=== PATIENT | female | born 1965 | race Caucasian/White ===

== ENCOUNTER 2021-01-14 13:36 | Outpatient (CLI) | payer OTHER ==
--- NOTE | 2021-01-14 15:58 | XRAY Report ---
PROCEDURE: Hip w/Pelvis 2-3V RT INDICATIONS: RIGHT HIP PAIN TECHNIQUE: AP pelvis with lateral view of the right hip. COMPARISON: None. FINDINGS: Bones: No fractures or dislocations. Pelvic ring appears intact. There are patchy indistinct sclero tic and lucent lesions throughout the visualized osseous structures. Soft tissues: The visualized bowel gas pattern is normal. No suspicious soft tissue calcifications. IMPRESSION: 1. Patchy indistinct sclerotic and lucent lesions throughout the visualized osseous structures. The f indings are nonspecific but highly suspicious for metastatic disease. Recommend correlation clinicall y for possible history of malignancy. Further evaluation may be obtained with a bone scan if indicate d. 2. No fracture or dislocation. Findings discussed with Lawrence Gong on 01/14/2021 at 3:55 PM [place] time. Reviewed by: Clint Rob MD on 01/14/2021 2:56 PM [place] Approved by: Clint Rob MD on 01/14/2021 2:56 PM [place] Station ID: [id number]
--- NOTE | 2021-01-14 16:26 | XRAY Report ---
PROCEDURE: Lumbar Spine 2 View INDICATIONS: RIGHT HIP PAIN TECHNIQUE: 2 views of the lumbar spine were acquired. COMPARISON: None. FINDINGS: Bones: 5 [id number] vertebrae are present. There is overall appearance of lumbar straightening . Moderate disc space narrowing is present at L5-S1 as well as foraminal narrowing. Mild disc space n arrowing is present L4-5. No vertebral body compression fractures. No suspicious bony lesions. Soft tissues: Overlying bowel gas pattern is normal. No suspicious soft tissue calcifications. IMPRESSION: Degenerative changes most notable at L5-S1. Reviewed by: Allyson Gandara MD on 01/14/2021 4:24 PM PST Approved by: Allyson Gandara MD on 01/14/2021 4:24 PM PST Station ID: [id number]
== END 2021-01-14 23:59 | disposition home or self-care (01) ==
LOC: DI.N 13:36
PROVIDERS: ATTEND Physician Assistant Medical
DX: R93.6 Abnormal findings on diagnostic imaging of limbs (principal); M47.816 Spondylosis without myelopathy or radiculopathy, lumbar region; M47.817 Spondylosis without myelopathy or radiculopathy, lumbosacral region; M51.36 Other intervertebral disc degeneration, lumbar region; M48.061 Spinal stenosis, lumbar region without neurogenic claudication; M51.37 Other intervertebral disc degeneration, lumbosacral region; M48.07 Spinal stenosis, lumbosacral region

== ENCOUNTER 2021-01-21 14:11 | Emergency (ER) | payer OTHER ==
--- NOTE | 2021-01-21 14:56 | ED Physician Documentation ---
History of Present Illness - Stated complaint Stated Complaint: AMS - Chief complaint Chief Complaint: Neuro - History obtained from History obtained from: Patient, Family - History of Present Illness Timing: Today Pain level max: 8 Pain level now: 6 - Additonal information Additional information: Patient is a 55-year-old female with a history of breast cancer that she was treated for several years ago including a mastectomy. She had been "released from the clinic" about 7 years ago. 1 week ago she was at [facility], had CT scans of the chest abdomen and pelvis which showed diffuse metastatic disease. The patient is awaiting an oncology follow-up visit. She has seen her primary care provider at [facility] as well. The patient today states that she had acute confusion. This was noticed by the daughter. Unclear how long this lasted or when it started but has since resolved. Patient is back to her normal baseline. She has not had any imaging performed of her brain. Unknown if she has metastases anywhere other than the ribs and spine. No focal neurological deficits. Nothing made it better or worse Patient states that she was started on oxycodone for pain, takes this every 8 hours, she states 5 mg pills. She states her only other medication she is taking is anastrozole Review of Systems Ten Systems: 10 systems reviewed and negative Constitutional: denies: Fever, Chills Ears: denies: Ear pain Nose: denies: Rhinorrhea / runny nose, Congestion Throat: denies: Sore throat Cardiac: denies: Chest pain / pressure Respiratory: denies: Dyspnea, Cough, Wheezing GI: denies: Vomiting, Diarrhea Skin: denies: Rash Musculoskeletal: denies: Neck pain, Back pain Neurologic: denies: Headache PD PAST MEDICAL HISTORY - Allergies Allergies/Adverse Reactions: Allergies Allergy/AdvReac Type Severity Reaction Status Date / Time No Known Drug Allergies Allergy Verified 01/21/21 14:33 PD ED PE NORMAL - Vitals Vital signs reviewed: Yes - General General: Alert and oriented X 3, No acute distress, Well developed/nourished - HEENT HEENT: Atraumatic, PERRL, EOMI, Ears normal, Moist mucous membranes, Pharynx benign - Neck Neck: Supple, no meningeal sign, Other (Full range of motion without any pain pain) - Cardiac Cardiac: No murmur, Other (Tachycardic but regular) - Respiratory Respiratory: No respiratory distress, Clear bilaterally - Abdomen Abdomen: Soft, Non tender, Non distended - Back Back: No CVA TTP, No spinal TTP - Derm Derm: Warm and dry - Extremities Extremities: No edema, No calf tenderness / cord - Neuro Neuro: Alert and oriented X 3, rackman 2-12 intact, No motor deficit, No sensory deficit, Normal speech Eye Opening: Spontaneous Motor: Obeys Commands Verbal: Oriented GCS Score: 15 - Psych Psych: Normal mood, Normal affect - Free text exam Free text exam: NIH stroke scale of 0 Results - Vitals Vitals: Vital Signs - 24 hr 01/21/21 01/21/21 01/21/21 14:26 15:02 17:00 Temperature 38.0 C H Heart Rate 140 H 136 H 128 H Respiratory 14 21 20 Rate Blood Pressure 107/72 126/78 124/82 H O2 Saturation 97 99 98 01/21/21 19:02 Temperature Heart Rate 127 H Respiratory 20 Rate Blood Pressure 129/81 H O2 Saturation 98 Oxygen O2 Source Room air - Labs Labs: Laboratory Tests 01/21/21 01/21/21 01/21/21 14:55 14:55 14:55 WBC 12.0 H RBC 3.37 L Hgb 9.8 L Hct 31.2 L MCV 92.6 MCH 29.1 MCHC 31.4 L RDW 19.9 H Plt Count 19 L* Neut # (Auto) Not Reportable Lymph # (Auto) Not Reportable Edmonson # (Auto) Not Reportable Eos # (Auto) Not Reportable Baso # (Auto) Not Reportable Absolute Nucleated RBC Not Reportable Total Counted 100 Band Neuts % (Manual) 3 Abnorm Lymph % (Manual) 0 Metamyelocytes % 5 H Myelocytes % 1 H Nucleated RBC % Not Reportable Neutrophils # (Manual) 6.2 Lymphocytes # (Manual) 4.3 H Monocytes # (Manual) 0.5 Eosinophils # (Manual) 0.1 Basophils # (Manual) 0.1 Nucleated RBCs 27 Differential Comment MANUAL DIFFERENTIAL WBC Morphology NORMAL APPEARANCE Platelet Estimate DECREASED (<130,000) Platelet Morphology NORMAL APPEARANCE RBC Morph Micro Appear 2+ POLYCHROMASIA PT 16.6 H INR 1.5 H APTT 22.3 L Sodium 128 L Potassium 3.8 Chloride 95 L Carbon Dioxide 21 Anion Gap 12.0 BUN 10 Creatinine 0.5 Estimated GFR (MDRD) 128 Glucose 109 H Calcium 8.7 Total Bilirubin 1.0 AST 260 H ALT 37 Alkaline Phosphatase 729 H Total Protein 7.2 Albumin 3.2 Globulin 4.0 Albumin/Globulin Ratio 0.8 L Lipase 23 - Rads (name of study) CT head Radiology: Final report received, EMP read contemporaneously, See rad report MRI brain Radiology: Final report received, EMP read contemporaneously, See rad report PD MEDICAL DECISION MAKING - ED course Complexity details: reviewed results, re-evaluated patient, considered differential, d/w patient, d/w family, d/w health care consultant ED course: Patient is a 55-year-old female with metastatic breast cancer. Has diffuse metastases throughout most of her bones including her skull. Unclear etiology of the transient altered mental status today. This did not last longer than about 20 minutes. She is not a candidate to be anticoagulated given her thrombocytopenia. Her MRI shows mild diffuse dural enhancement. Patient does not have any meningeal signs on physical exam. She has full range of motion of the neck without any discomfort. We did discuss a lumbar puncture, but given her significant thrombocytopenia, she would be at high risk for hematoma from this procedure that could cause compression of her spinal cord. Therefore this will be held at this time. Patient is very well-appearing, nontoxic. Afebrile on repeat temperature testing. 37.3. Discussed the case with Dr. Troncoso, her oncologist who will follow her up on Monday in the office. Patient does not have any signs of active bleeding currently. Patient and family counseled regarding signs and symptoms for which I believe and urgent re-evaluation would be necessary. Patient with good understanding of and agreement to plan and is comfortable going home at this time This document was made in part using voice recognition software. While efforts are made to proofread this document, sound alike and grammatical errors may occur. MRI Results: FINDINGS: Image quality: Excellent. CSF spaces: Basal cisterns are patent. No extra-axial fluid collections. Ventricles are normal in size and shape. Brain: No midline shift. No intracranial bleeds or masses. There is mild to moderate diffuse dural enhancement which is mildly nodular. There is cerebral volume loss for age. There is periventricular white matter chronic small vessel ischemic change. The brainstem appears normal. Diffusion-weighted images demonstrate no acute ischemic insults. No chronic ischemic insults. Normal intravascular flow voids are present. Skull and face: Calvarial marrow is normal in signal. Orbits appear normal. Sinuses: Sinuses and mastoids appear clear. IMPRESSION: 1. Mild diffuse dural enhancement. Finding could indicate leptomeningeal tumor. Other considerations include chronic intracranial hypotension, as well as meningitis, and granulomatous disease. Correlation with CSF analysis recommended. 2. No acute process. No recent infarct. CT Results: FINDINGS: Image quality: Excellent. CSF spaces: Basal cisterns are patent. No extra-axial fluid collections. Ventricles are normal in size and shape. Brain: No midline shift. No intracranial masses or hemorrhage. Dyer-white matter interface is normal. Skull and face: Multiple well-defined lucent lesions are seen within the calvarium. Sinuses: Mucosal thickening is seen in the frontal sinuses and anterior ethmoid air cells bilaterally. The remaining visualized paranasal sinuses and the mastoid air cells are clear. IMPRESSION: 1.No acute cardiopulmonary abnormality. 2.Multiple small lucent lesions are seen throughout the calvarium that are of uncertain etiology and could represent benign or malignant lesions including metastatic disease. Recommend correlation with clinical findings and history. Departure - Departure Disposition: 01 Home, Self Care Clinical Impression: Metastatic breast cancer, Thrombocytopenia Altered mental status Qualifiers: Altered mental status type: unspecified Qualified Code(s): R41.82 - Altered mental status, unspecified Condition: Good Instructions: ED Altered Loc Follow-Up: JUSTYNA PEACOCK ARNP [Primary Care Provider] - GHANSHYAM TRONCOSO MD [Physician No Access] - 01/25/21 Comments: As we discussed, you do have a complex medical situation. The cause of your altered mental status earlier today is unclear. Your hemoglobin is slightly higher than when you were at [facility]. Your platelets have continued to drop and are down to 19. Your white blood cell count is mildly elevated today at 12.0. You do not seem to have any infectious symptoms other than a mildly elevated temperature upon arrival. Your CT scan and MRI show disease consistent with metastases to your skull. You could have an early infection in your brain such as encephalitis or meningitis, though given that your symptoms have resolved and you're not having headache or neck pain, this is less likely. We did discuss a lumbar puncture, but given your low platelets, you would be at risk for a spinal cord compression from hematoma. I would recommend that if fevers recurr or you worsen, you to go immediately to [facility] where you can be evaluated by Dr. Troncoso and his team. I did speak with Dr. Derrick cevallos and he wants to see you in the clinic on Monday. You need to be seen also if you fall, have any head injury or noticed any bleeding. MRI Results: FINDINGS: Image quality: Excellent. CSF spaces: Basal cisterns are patent. No extra-axial fluid collections. Ventricles are normal in size and shape. Brain: No midline shift. No intracranial bleeds or masses. There is mild to moderate diffuse dural enhancement which is mildly nodular. There is cerebral volume loss for age. There is periventricular white matter chronic small vessel ischemic change. The brainstem appears normal. Diffusion-weighted images demonstrate no acute ischemic insults. No chronic ischemic insults. Normal intravascular flow voids are present. Skull and face: Calvarial marrow is normal in signal. Orbits appear normal. Sinuses: Sinuses and mastoids appear clear. IMPRESSION: 1. Mild diffuse dural enhancement. Finding could indicate leptomeningeal tumor. Other considerations include chronic intracranial hypotension, as well as meningitis, and granulomatous disease. Correlation with CSF analysis recommended. 2. No acute process. No recent infarct. CT Results: FINDINGS: Image quality: Excellent. CSF spaces: Basal cisterns are patent. No extra-axial fluid collections. Ventricles are normal in size and shape. Brain: No midline shift. No intracranial masses or hemorrhage. Dyer-white matter interface is normal. Skull and face: Multiple well-defined lucent lesions are seen within the calvarium. Sinuses: Mucosal thickening is seen in the frontal sinuses and anterior ethmoid air cells bilaterally. The remaining visualized paranasal sinuses and the mastoid air cells are clear. IMPRESSION: 1.No acute cardiopulmonary abnormality. 2.Multiple small lucent lesions are seen throughout the calvarium that are of uncertain etiology and could represent benign or malignant lesions including metastatic disease. Recommend correlation with clinical findings and history. Discharge Date/Time: 01/21/21 19:03
[2021-01-21 15:05] LABS: BASOPHILS % (AUTO) 1.6 %; EOSINOPHILS % (AUTO) 7.4 %; HCT - HEMATOCRIT 31.2 % (37.0-47.0); HGB - HEMOGLOBIN 9.8 g/dL (12.0-16.0); LYMPHOCYTES % (AUTO) 35.8 %; MEAN CORPUSCULAR HEMOGLOBIN 29.1 pg (27.0-31.0); MEAN CORPUSCULAR HGB CONC 31.4 g/dL (32.0-36.0); MEAN CORPUSCULAR VOLUME 92.6 fL (81.0-99.0); MONOCYTES % (AUTO) 12.1 %; NEUTROPHILS % (AUTO) 34.7 %; RED BLOOD COUNT 3.37 10^6/uL (4.20-5.40); RED CELL DISTRIBUTION WIDTH 19.9 % (12.0-15.0)
[2021-01-21] MEDS ORDERED: GADOBUTROL 10 MMOL/10 ML VIAL ONE (15:07)
[2021-01-21 15:15] LABS: ALBUMIN 3.2 g/dL (3.2-5.5); ALBUMIN/GLOBULIN RATIO 0.8 (1.0-2.2); CALCIUM 8.7 mg/dL (8.5-10.3); CREATININE 0.5 mg/dL (0.4-1.0); POTASSIUM 3.8 mmol/L (3.5-5.0); TOTAL PROTEIN 7.2 g/dL (6.7-8.2)
[2021-01-21 15:18] LABS: PLT - PLATELET COUNT 19 10^3/uL (130-450)
[2021-01-21 15:19] LABS: ABNORMAL LYMPHS % (MANUAL) 0 %
[2021-01-21 15:33] LABS: INR 1.5 (0.8-1.2); PT - PROTHROMBIN TIME 16.6 secs (9.9-12.6)
[2021-01-21 15:45] LABS: PARTIAL THROMBOPLASTIN TIME 22.3 secs (24.9-33.3)
[2021-01-21 15:53] LABS: BAND NEUTROPHILS % (MANUAL) 3 %; BASOPHILS # (MANUAL) 0.1 10^3/uL (0-0.1); BASOPHILS % (MANUAL) 1 %; EOSINOPHILS # (MANUAL) 0.1 10^3/uL (0-0.7); LYMPHOCYTES # (MANUAL) 4.3 10^3/uL (1.5-3.5); LYMPHOCYTES % (MANUAL) 36 %; METAMYELOCYTES % (MANUAL) 5 %; MONOCYTES # (MANUAL) 0.5 10^3/uL (0.0-1.0); MYELOCYTES % (MANUAL) 1 %; NEUTROPHILS # (MANUAL) 6.2 10^3/uL (1.5-6.6); NUCLEATED RBC (MANUAL) 27 %
[2021-01-21 15:54] LABS: DIFFERENTIAL COMMENT MANUAL DIFFERENTIAL; PLATELET ESTIMATE, MANUAL DECREASED (<130,000) (NORMAL); PLATELET MORPHOLOGY NORMAL APPEARANCE (NORMAL); WBC MORPHOLOGY (MULTIPLE) NORMAL APPEARANCE (NORMAL)
[2021-01-21] MEDS: GADOBUTROL 10 MMOL/10 ML VIAL IVP ONE (16:23)
--- NOTE | 2021-01-21 16:45 | CT Report ---
PROCEDURE: HEAD WO INDICATIONS: transient altered mental status TECHNIQUE: Noncontrast 4.5 mm thick angled axial sections acquired from the foramen magnum to the vertex. For r adiation dose reduction, the following was used: automated exposure control, adjustment of mA and/or kV according to patient size. COMPARISON: None. FINDINGS: Image quality: Excellent. CSF spaces: Basal cisterns are patent. No extra-axial fluid collections. Ventricles are normal in size and shape. Brain: No midline shift. No intracranial masses or hemorrhage. Dyer-white matter interface is norm al. Skull and face: Multiple well-defined lucent lesions are seen within the calvarium. Sinuses: Mucosal thickening is seen in the frontal sinuses and anterior ethmoid air cells bilaterally . The remaining visualized paranasal sinuses and the mastoid air cells are clear. IMPRESSION: 1.No acute cardiopulmonary abnormality. 2.Multiple small lucent lesions are seen throughout the calvarium that are of uncertain etiology and could represent benign or malignant lesions including metastatic disease. Recommend correlation with clinical findings and history. Reviewed by: Judah Michelle MD on 01/21/2021 4:43 PM PST Approved by: Judah Michelle MD on 01/21/2021 4:43 PM PST Station ID: [id number]
--- NOTE | 2021-01-21 16:47 | MRI Report ---
PROCEDURE: Brain W/WO INDICATIONS: altered mental status, metastatic breast CA CONTRAST: IV CONTRAST: Gadavist ml: 8.3 TECHNIQUE: Noncontrast axial T1 spin echo, axial T2 fast spin echo, sagittal and axial FLAIR, coronal T2 fast sp in echo, axial gradient echo, axial diffusion and ADC through the brain. After the administration of contrast, axial and coronal T1 spin echo with fat saturation through the brain. COMPARISON: Head CT dated 01/21/2021 FINDINGS: Image quality: Excellent. CSF spaces: Basal cisterns are patent. No extra-axial fluid collections. Ventricles are normal in size and shape. Brain: No midline shift. No intracranial bleeds or masses. There is mild to moderate diffuse dural enhancement which is mildly nodular. There is cerebral volume loss for age. There is periventricular white matter chronic small vessel ischemic change. The brainstem appears normal. Diffusion-weighte d images demonstrate no acute ischemic insults. No chronic ischemic insults. Normal intravascular f low voids are present. Skull and face: Calvarial marrow is normal in signal. Orbits appear normal. Sinuses: Sinuses and mastoids appear clear. IMPRESSION: 1. Mild diffuse dural enhancement. Finding could indicate leptomeningeal tumor. Other considerations include chronic intracranial hypotension, as well as meningitis, and granulomatous disease. Correlati on with CSF analysis recommended. 2. No acute process. No recent infarct. Reviewed by: Erin Rebolledo MD on 01/21/2021 3:45 PM [place] Approved by: Erin Rebolledo MD on 01/21/2021 3:45 PM [facility] Station ID: [id number]
[2021-01-21] MEDS: SODIUM CHLORIDE 0.9% 1,000 ML IV STA (17:34)
[2021-01-21 19:03] VITALS: BP 129/81
== END 2021-01-21 19:03 | disposition home or self-care (01) ==
LOC: ED 14:11
DX: C50.919 Malignant neoplasm of unspecified site of unspecified female breast (principal); C78.2 Secondary malignant neoplasm of pleura; C79.51 Secondary malignant neoplasm of bone; D69.6 Thrombocytopenia, unspecified
CPT/HCPCS: 36415; 70450; 70553; 80053; 83690; 85025; 85610; 85730; 99284; A9585